=== PATIENT | female | born 1995 | race Caucasian/White ===

== ENCOUNTER 2020-03-29 01:40 | Emergency (ER) | payer OTHER ==
[~2020-03-29] VITALS: Ht 172.7 cm; Wt 81.6 kg
[2020-03-29 01:49] VITALS: BP 120/74
--- NOTE | 2020-03-29 01:52 | NUR ---
TO LOBBY A/W BED AMBULATORY
--- NOTE | 2020-03-29 02:48 | NUR ---
DAYO MUSEUM EXHIBIT TECHNICIAN NOTIFIED CODE BRAIN AT THIS TIME.
--- NOTE | 2020-03-29 02:50 | NUR ---
24 Y/O FEMALE PRESENTED TO THE ED C/O CHEST PAIN AND N/V. PT IS A POOR HISTORIAN AT THIS TIME. PT IS UNABLE TO PRONOUNCE ANY WORDS AT THIS TIME. PERRLA. MILD WEAKNESS NOTED TO UPPER AND LOWER EXTREMITIES. CMS INTACT. PT AXO TO PERSON PLACE TIME. PT CONNECTED TO THE LOCK TECHNICIAN. BED IS LOCKED AND IN LOWEST POSITION. WILL CONTINUE TO MONITOR. PMH: DENIES NKA
--- NOTE | 2020-03-29 02:50 | NUR ---
ESCORTED PT TO CT WITH THE PHOTOVOLTAIC TESTING TECHNICIAN VIA [facility]
--- NOTE | 2020-03-29 03:00 | NUR ---
[facility]
--- NOTE | 2020-03-29 03:15 | NUR ---
BLOOD CULTURES AND LABS COLLECTED AND HANDED TO [employer] AIRCRAFT MANAGER.
[2020-03-29 03:20] LABS: BASOPHILS % (AUTO) 0.5 % (0.0-2.0); EOSINOPHILS # (AUTO) 0.1 K/uL (0-0.4); EOSINOPHILS % (AUTO) 1.2 % (0.0-4.0); HEMATOCRIT 45.7 % (36-48); HEMOGLOBIN 15.7 g/dL (12.0-16.0); LYMPHOCYTES # (AUTO) 2.5 K/uL (2.5-16.5); LYMPHOCYTES % (AUTO) 26.5 % (20.5-51.1); MEAN CORPUSCULAR HEMOGLOBIN 30 pg (27-31); MEAN CORPUSCULAR HGB CONC 34 g/dL (33-37); MEAN CORPUSCULAR VOLUME 88.5 fL (80-94); MONOCYTES # (AUTO) 0.6 K/uL (0.8-1.0); MONOCYTES % (AUTO) 6.8 % (1.7-9.3); NEUTROPHILS # (AUTO) 6.2 K/uL (1.8-7.7); PLATELET COUNT (AUTO) 289 K/uL (140-450); RED BLOOD CELL COUNT(AUTO) 5.17 MIL/uL (4.20-5.40); WHITE BLOOD COUNT (AUTO) 9.6 K/uL (4.8-10.8)
--- NOTE | 2020-03-29 03:23 | NUR ---
X-RAY AT BEDSIDE.
--- NOTE | 2020-03-29 03:25 | NUR ---
URINE SAMPLE COLLECTED AND WALKED TO LAB.
--- NOTE | 2020-03-29 03:29 | NUR ---
NEURO TELEHEALTH CONSULT AT BEDSIDE.
--- NOTE | 2020-03-29 03:30 | NUR ---
PER NEURO TELEMED INITIATED CONNECT ID:[id number]
[2020-03-29] MEDS ORDERED: LORazepam 2 MG/ML VIAL IVP ONE ×2 (03:50→06:20)
[2020-03-29 03:59] LABS: APPEARANCE,URINE CLEAR (CLEAR); BILIRUBIN,URINE NEGATIVE (NEGATIVE); BLOOD, URINE NEGATIVE (NEGATIVE); COLOR,URINE YELLOW (YELLOW); LEUKOCYTE ESTERASE ,URINE NEGATIVE (NEGATIVE); NITRITE, URINE NEGATIVE (NEGATIVE); UGLUCOSE NEGATIVE (NEGATIVE)
[2020-03-29 04:00] LABS: ALBUMIN 4.4 g/dL (3.4-5.0); ANION GAP 13.5 (8-16); ASPARTATE AMINOTRANSFERASE 15 U/L (15-37); CARBON DIOXIDE 23.1 mmol/L (21-32); CHLORIDE 101 mmol/L (98-107); CREATININE 0.8 mg/dL (0.6-1.3); GFR ARICAN-AMERICAN 112 mL/min (>90); GLUCOSE 126 mg/dL (74-106); POTASSIUM 3.6 mmol/L (3.5-5.1); SODIUM SERUM 134 mmol/L (136-145); TOTAL BILIRUBIN 0.4 mg/dL (0.0-1.0); UREA NITROGEN, BLOOD 12 mg/dL (7-18)
[2020-03-29 04:07] LABS: BARBITURATE, URINE NEGATIVE ng/ml (NEG <=200); BENZODIAZEPINE, URINE NEGATIVE ng/mL (NEG <=200); CANNABINOID, URINE NEGATIVE ng/mL (NEG <=50); COCAINE, URINE NEGATIVE ng/mL (NEG <=300); OPIATE, URINE NEGATIVE ng/mL (NEG <=2000); PHENCYCLIDINE SCREEN,URINE NEGATIVE ng/mL (NEG <=25)
[2020-03-29 04:10] LABS: ACETAMINOPHEN < 0.5 ug/ml (10-30); SALICYLATE < 2.8 mg/dL (2.8-20.0)
[2020-03-29] MEDS ORDERED: NACL 0.9% 1,000 ML IV ONE (04:40)
--- NOTE | 2020-03-29 04:40 | NUR ---
PT SITTING IN UPRIGHT POSITION. PT IS NOT IN ANY ACUTE DISTRESS AT THIS TIME. BED IS LOCKED AND IN LOWEST POSITION. SIDE RAILSX2 FOR PT PROTECTION. PT CONNECTED TO THE SEAFOOD AND SERVICE MEAT MANAGER. SAO2@99%. WILL CONTINUE TO MONITOR
--- NOTE | 2020-03-29 05:20 | NUR ---
TELE PSYCH AT BEDSIDE
--- NOTE | 2020-03-29 05:55 | NUR ---
ERMD ENDO AT BEDSIDE
[2020-03-29] MEDS ORDERED: DIVALPROEX 500 MG TABEC PO ONE (06:20)
--- NOTE | 2020-03-29 06:21 | NUR ---
ERMD ENDO AT BEDSIDE
--- NOTE | 2020-03-29 06:30 | NUR ---
PT SUGGESTING THAT SHE HAS POSSIBLE CARBON MONOXIDE POISONING, REY MADE AWARE, HE ORDERED O2 THERAPY 2L NC
[2020-03-29] MEDS ORDERED: DIVALPROEX SPRINKLES 125 MG CAPDR PO SCH (06:45)
--- NOTE | 2020-03-29 06:55 | NUR ---
CALLED PROGRAM MANAGER TO BRING JUN DELGADO
--- NOTE | 2020-03-29 07:06 | NUR ---
PTS SPEECH HAS IMPROVED AND IS ABLE TO VERBALIZE CLEARLY AT THIS TIME.
--- NOTE | 2020-03-29 07:11 | NUR ---
WHEN ASKED ABOUT HER PAST MEDICAL HISTORY PT STATED THAT SHE WAS DIAGNOSED WITH CEREBRAL DYSRHYTHMIAS, ANXIETY & DEPRESSION. PT IS NON-COMPLIANT WITH MEDCATIONS. AND HAS NO OTHER HISTORY AT THIS TIME. PT STATES SHE DOESN'T TAKE ANY MEDICATIONS AT THIS TIME.
--- NOTE | 2020-03-29 07:18 | NUR ---
REPORT GIVEN TO BLAKE GORMAN FOR TRANSFER OF CARE.
--- NOTE | 2020-03-29 07:20 | NUR ---
REPORT RECEIVED FROM BLAKE ALDRICH.
--- NOTE | 2020-03-29 07:25 | NUR ---
PT ASSESSED. A&OX4 WITH MOMENTS OF CONFUSION. ELECTRIC STOP INSTALLER, PULSE OX IN PLACE. PT IN POSITION OF COMFORT. EQUAL CHEST RISE AND FALL. BED AT LOWEST POSITION. CALL LIGHT WITHIN REACH. SIDE RAILS X 1.
--- NOTE | 2020-03-29 09:08 | NUR ---
SPOKE WITH PTS SISTER IN [facility] FOR UPDATE ON PLAN OF CARE AND PT STATUS. DUTCH PERSAUD- [phone]
--- NOTE | 2020-03-29 09:20 | NUR ---
DR. KAHN AT BEDSIDE PERFORMING PSYCH EVALUATION
--- NOTE | 2020-03-29 09:26 | NUR ---
SPOKE WITH PATIENTS BROTHER TO UPDATE ON PLAN OF CARE AND PT STATUS LAYA PERSAUD [phone]
--- NOTE | 2020-03-29 10:45 | NUR ---
ERMD STATES OK TO D/C WITH PTS HR OF 111 AND PERIODS OF CONFUSION
--- NOTE | 2020-03-29 11:00 | NUR ---
CALLED PTS SISTER TO EMERGENCY SERVICE RESTORER PT DUE TO DC
[2020-03-29 11:15] VITALS: BP 119/72
--- NOTE | 2020-03-29 11:15 | NUR ---
Patient discharged with v/s stable. Written and verbal after care instructions given and explained. Patient alert, oriented and verbalized understanding of instructions. Ambulatory with steady gait to patients brother in lobby. All questions addressed prior to discharge. ID band removed. Patient advised to follow up with PMD. Rx of DEPAKOTE given. Patient educated on indication of medication including possible reaction and side effects. Opportunity to ask questions provided and answered.
== END 2020-03-29 11:15 | disposition home or self-care (01) ==
LOC: MED 01:40
DX: G40.909 Epilepsy, unspecified, not intractable, without status epilepticus (principal)
CPT/HCPCS: 36415; 70450; 71045; 80053; 80305; 81003; 81025; 82550; 84484; 85025; 93005; 96361; 96374; 96375; 99285; G0480; G0482; J2060; J7030

== ENCOUNTER 2021-02-04 20:07 | Emergency (ER) | payer OTHER ==
[~2021-02-04] VITALS: Ht 170.2 cm; Wt 90.7 kg
[2021-02-04 20:29] VITALS: BP 135/89
[2021-02-04 21:35] LABS: BASOPHILS # (AUTO) 0.1 K/uL (0.00-0.22); EOSINOPHILS # (AUTO) 0.1 K/uL (0-0.4); EOSINOPHILS % (AUTO) 1.5 % (0.0-4.0); HEMATOCRIT 46.1 % (36-48); HEMOGLOBIN 15.5 g/dL (12.0-16.0); LYMPHOCYTES # (AUTO) 2.4 K/uL (2.5-16.5); MEAN CORPUSCULAR HEMOGLOBIN 30 pg (27-31); MEAN CORPUSCULAR HGB CONC 34 g/dL (33-37); MEAN CORPUSCULAR VOLUME 88.8 fL (80-94); MONOCYTES # (AUTO) 0.8 K/uL (0.8-1.0); MONOCYTES % (AUTO) 9.5 % (1.7-9.3); NEUTROPHILS # (AUTO) 4.7 K/uL (1.8-7.7); PLATELET COUNT (AUTO) 240 K/uL (140-450); RED BLOOD CELL COUNT(AUTO) 5.19 MIL/uL (4.20-5.40); RED CELL DISTRIBUTION WIDTH 13.5 % (11.6-13.7); WHITE BLOOD COUNT (AUTO) 8.1 K/uL (4.8-10.8)
[2021-02-04 21:51] LABS: APPEARANCE,URINE CLEAR (CLEAR); BILIRUBIN,URINE NEGATIVE (NEGATIVE); BLOOD, URINE 3+ (NEGATIVE); COLOR,URINE YELLOW (YELLOW); LEUKOCYTE ESTERASE ,URINE NEGATIVE (NEGATIVE); NITRITE, URINE NEGATIVE (NEGATIVE); UGLUCOSE NEGATIVE (NEGATIVE)
[2021-02-04 21:56] LABS: RBC,URINE TOO NUMEROUS TO COUN /HPF (0-5); WBC,URINE 0-5 /HPF (0-5)
[2021-02-04 22:06] LABS: ALBUMIN 4.3 g/dL (3.4-5.0); CARBON DIOXIDE 22.7 mmol/L (21-32); CREATININE 0.7 mg/dL (0.6-1.3); POTASSIUM 3.7 mmol/L (3.5-5.1); TOTAL BILIRUBIN 0.3 mg/dL (0.0-1.0)
--- NOTE | 2021-02-05 01:30 | NUR ---
PATIENT TAKEN TO BED 8, AMBULATORY WITH STEADY GAIT.
--- NOTE | 2021-02-05 02:00 | NUR ---
Female Handle Maker accompanied female patient for Pelvic Exam. Wet mount collected.
[2021-02-05] MEDS ORDERED: cefTRIAXone 500 MG in LIDOCAINE MPF 1% 1 ML IM SCH (02:55)
[2021-02-05] MEDS ORDERED: METR500T1 PO (02:57)
[2021-02-05] MEDS ORDERED: DOXY-487 PO (02:57)
[2021-02-05] MEDS ORDERED: cefTRIAXone 500 MG VIAL ONE (03:16)
[2021-02-05] MEDS ORDERED: LIDOCAINE MPF 1% 5 ML ONE (03:17)
[2021-02-05] MEDS ORDERED: cefTRIAXone 500 MG in LIDOCAINE MPF 1% 1 ML IM ONE (03:20)
[2021-02-05 03:40] VITALS: BP 122/78
--- NOTE | 2021-02-05 03:40 | NUR ---
Patient discharged with v/s stable. Written and verbal after care instructions given and explained. Patient alert, oriented and verbalized understanding of instructions. Ambulatory with steady gait. All questions addressed prior to discharge. ID band removed. Patient advised to follow up with PMD. Rx of FLAGYL, DOXYCYCLINE HYCLATE given. Patient educated on indication of medication including possible reaction and side effects. Opportunity to ask questions provided and answered.
== END 2021-02-05 03:40 | disposition home or self-care (01) ==
LOC: MED 20:07
DX: N76.0 Acute vaginitis (principal); B96.89 Other specified bacterial agents as the cause of diseases classified elsewhere; N73.9 Female pelvic inflammatory disease, unspecified; Z79.899 Other long term (current) drug therapy
CPT/HCPCS: 36415; 76830; 80053; 81001; 81025; 85025; 87210; 87491; 93005; 96372; 99283; J0696; J2001; Q0092; 81002

== ENCOUNTER 2021-09-06 23:12 | Emergency (ER) | payer OTHER ==
[~2021-09-06] VITALS: Ht 172.7 cm; Wt 96.2 kg
[~2021-09-06 23:12] MED LIST: DOXY-487 PO; METR500T1 PO
[2021-09-06 23:42] VITALS: BP 126/89
--- NOTE | 2021-09-06 23:49 | NUR ---
PATIENT TO THE LOBBY
[2021-09-07 01:30] VITALS: BP 126/89
--- NOTE | 2021-09-07 01:30 | NUR ---
Patient discharged with v/s stable. Written and verbal after care instructions given and explained. Patient verbalized understanding. Ambulatory with steady gait. All questions addressed prior to discharge. Advised to follow up with PMD.
== END 2021-09-07 01:40 | disposition home or self-care (01) ==
LOC: MED 23:12
DX: L29.9 Pruritus, unspecified (principal); Z79.2 Long term (current) use of antibiotics; W53.19XA Other contact with rat, initial encounter; Y92.89 Other specified places as the place of occurrence of the external cause; Y93.89 Activity, other specified; Y99.0 Civilian activity done for income or pay
CPT/HCPCS: 90471; 90715; 99283

== ENCOUNTER 2021-11-21 02:53 | Emergency (ER) | payer OTHER ==
[~2021-11-21] VITALS: Ht 172.7 cm; Wt 96.2 kg
[2021-11-21 03:10] VITALS: BP 133/75
--- NOTE | 2021-11-21 03:11 | NUR ---
seen and examined by REY with orders and carried out
--- NOTE | 2021-11-21 03:15 | NUR ---
to bed ambulatory
--- NOTE | 2021-11-21 03:32 | NUR ---
PATIENT TAKEN TO CT SCANNER
[2021-11-21 05:47] VITALS: BP 122/84
[2021-11-21] MEDS ORDERED: ACET-10509 PO (18:53)
[2021-11-21] MEDS ORDERED: ONDA-188 PO (18:53)
[2021-11-21] MEDS ORDERED: IBUP-1842 PO (18:53)
[2021-11-21] MEDS ORDERED: CYCL-711 PO (18:53)
== END 2021-11-21 05:44 | disposition home or self-care (01) ==
LOC: MED 02:53
DX: S09.90XA Unspecified injury of head, initial encounter (principal); R42 Dizziness and giddiness; Z79.899 Other long term (current) drug therapy; V49.9XXA Car occupant (driver) (passenger) injured in unspecified traffic accident, initial encounter; Y93.89 Activity, other specified; Y92.89 Other specified places as the place of occurrence of the external cause; Y99.8 Other external cause status
CPT/HCPCS: 70450; 99284

== ENCOUNTER 2021-11-21 16:15 | Emergency (ER) | payer OTHER ==
[~2021-11-21] VITALS: Ht 172.7 cm; Wt 94.3 kg
[2021-11-21 16:22] VITALS: BP 134/86
--- NOTE | 2021-11-21 16:30 | NUR ---
PT AMBULATED TO BED 6
--- NOTE | 2021-11-21 16:39 | NUR ---
DR LOPEZ AT BEDSIDE ASSESSING PT.
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
[2021-11-21] MEDS ORDERED: ONDANSETRON 4 MG ODT PO ONE ×2 (16:45→16:50)
[2021-11-21] MEDS ORDERED: ACETAMINOPHEN EXTRA STRENGTH 500 MG TAB PO ONE (16:45)
[2021-11-21] MEDS ORDERED: NACL 0.9% 1,000 ML IV ONE (16:50)
[2021-11-21 17:02] LABS: BASOPHILS # (AUTO) 0.1 K/uL (0.00-0.22); BASOPHILS % (AUTO) 0.6 % (0.0-2.0); EOSINOPHILS # (AUTO) 0.1 K/uL (0-0.4); EOSINOPHILS % (AUTO) 1.1 % (0.0-4.0); HEMATOCRIT 44.5 % (36-48); HEMOGLOBIN 14.9 g/dL (12.0-16.0); LYMPHOCYTES % (AUTO) 23.1 % (20.5-51.1); MEAN CORPUSCULAR HEMOGLOBIN 29 pg (27-31); MEAN CORPUSCULAR HGB CONC 34 g/dL (33-37); MEAN CORPUSCULAR VOLUME 87.5 fL (80-94); MONOCYTES # (AUTO) 0.6 K/uL (0.8-1.0); MONOCYTES % (AUTO) 7.1 % (1.7-9.3); NEUTROPHILS % (AUTO) 68.1 % (42.2-75.2); PLATELET COUNT (AUTO) 252 K/uL (140-450); RED BLOOD CELL COUNT(AUTO) 5.08 MIL/uL (4.20-5.40); RED CELL DISTRIBUTION WIDTH 13.3 % (11.6-13.7); WHITE BLOOD COUNT (AUTO) 8.8 K/uL (4.8-10.8)
[2021-11-21 17:15] LABS: ANION GAP 13.8 (8-16); ASPARTATE AMINOTRANSFERASE 11 U/L (15-37); CARBON DIOXIDE 22.9 mmol/L (21-32); CHLORIDE 105 mmol/L (98-107); CREATININE 0.8 mg/dL (0.6-1.3); GFR ARICAN-AMERICAN 112 mL/min (>90); GLUCOSE 120 mg/dL (74-106); LIPASE 171 U/L (73-393); POTASSIUM 3.7 mmol/L (3.5-5.1); SODIUM SERUM 138 mmol/L (136-145); TOTAL BILIRUBIN 0.5 mg/dL (0.0-1.0); UREA NITROGEN, BLOOD 12 mg/dL (7-18)
[2021-11-21] MEDS ORDERED: ONDANSETRON 4 MG/2 ML VIAL IVP ONE (17:40)
[2021-11-21] MEDS ORDERED: ACET-10509 PO (18:53)
[2021-11-21] MEDS ORDERED: ONDA-188 PO (18:53)
[2021-11-21] MEDS ORDERED: CYCL-711 PO (18:53)
[2021-11-21] MEDS ORDERED: IBUP-1842 PO (18:53)
[2021-11-21 19:12] VITALS: BP 130/82
--- NOTE | 2021-11-21 19:13 | NUR ---
Patient discharged with v/s stable. Written and verbal after care instructions given and explained. Patient alert, oriented and verbalized understanding of instructions. Ambulatory with steady gait. All questions addressed prior to discharge. ID band removed. Patient advised to follow up with PMD. Rx of FLEXERIL, MOTRIN, ZOFRAN, AND TYLENOL given. Patient educated on indication of medication including possible reaction and side effects. Opportunity to ask questions provided and answered.
== END 2021-11-21 19:06 | disposition home or self-care (01) ==
LOC: MED 16:15
DX: S06.0X0A Concussion without loss of consciousness, initial encounter (principal); V49.88XA Car occupant (driver) (passenger) injured in other specified transport accidents, initial encounter; Y93.89 Activity, other specified; Y92.89 Other specified places as the place of occurrence of the external cause; Y99.8 Other external cause status
CPT/HCPCS: 80053; 81002; 81025; 83690; 85025; 96361; 96374; 99283; G0482; J2405; J7030

== ENCOUNTER 2022-01-23 15:29 | Emergency (ER) | payer OTHER ==
[~2022-01-23] VITALS: Ht 172.7 cm; Wt 96.6 kg
[~2022-01-23 15:29] MED LIST changes: +ACET-10509 PO; +CYCL-711 PO; +IBUP-1842 PO; +ONDA-188 PO
[2022-01-23 15:35] VITALS: BP 140/76
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
[2022-01-23 16:16] VITALS: BP 138/82
[2022-01-23] MEDS ORDERED: IBUP-2213 PO (16:44)
[2022-01-23] MEDS ORDERED: MIRABULK PO (16:44)
[2022-01-23] MEDS ORDERED: KETOROLAC 30 MG/ML VIAL IM ONE (16:45)
== END 2022-01-23 16:59 | disposition home or self-care (01) ==
LOC: MED 15:29
DX: K59.00 Constipation, unspecified (principal); Z87.442 Personal history of urinary calculi
CPT/HCPCS: 74018; 81002; 81025; 96372; 99283; J1885; Q0092

== ENCOUNTER 2022-03-04 08:25 | Day surgery (SDC) | payer MEDICAID ==
[~2022-03-04] VITALS: Ht 172.7 cm; Wt 98.4 kg
[~2022-03-04 08:25] MED LIST changes: +IBUP-2213 PO; +MIRABULK PO
[2022-03-04] MEDS ORDERED: LIDOCAINE 2% 100 MG/5 ML UJET TP ONE (10:06)
[2022-03-04] MEDS ORDERED: fentaNYL citrate 0.05 MG/ML VIAL ONE (10:06)
[2022-03-04] MEDS ORDERED: fentaNYL citrate 0.05 MG/ML VIAL IVP ONE (11:55)
== END 2022-03-04 11:40 | disposition home or self-care (01) ==
LOC: MMU 08:25 → MDS 08:25
PROVIDERS: ATTEND Internal Medicine Gastroenterology
DX: K62.5 Hemorrhage of anus and rectum (principal); K21.9 Gastro-esophageal reflux disease without esophagitis; Z20.822 Contact with and (suspected) exposure to COVID-19
CPT/HCPCS: 45378; 87426; J3010